=== PATIENT | male | born 1940 | race Hispanic/Latino ===

== ENCOUNTER → 2025-03-25 | Day surgery (SDC) | payer MEDICARE ==
[2025-03-24 13:32] LABS: ANION GAP 15.3 mmol/L (8-16); CALCIUM 9.5 mg/dL (8.4-10.2); CREATININE, SERUM 1.25 mg/dL (0.72-1.25)
[2025-03-24 13:33] LABS: POTASSIUM 5.3 mmol/L (3.5-5.1)
[2025-03-24 14:10] LABS: BASOPHILS % 0.5 % (0.0-1.0); EOSINOPHILS # (AUTO) 0.2 (0.0-0.4); EOSINOPHILS % 3.2 % (0.0-6.0); HEMATOCRIT 33.3 % (38.2-49.6); HEMOGLOBIN 10.8 g/dL (14.0-18.0); LYMPHOCYTES # (AUTO) 1.2 (1.0-3.2); LYMPHOCYTES % 15.8 % (18.0-39.1); MEAN CORPUSCULAR HEMOGLOBIN 28.8 pg (28-32); MEAN CORPUSCULAR HGB CONC 32.4 g/dL (31-35); MEAN CORPUSCULAR VOLUME 88.8 fL (81-99); MONOCYTES # (AUTO) 0.7 (0.2-0.8); MONOCYTES % 9.7 % (4.4-11.3); NEUTROPHILS # (AUTO) 5.3 (2.1-6.9); NEUTROPHILS % 70.4 % (38.7-80.0); PLATELET COUNT 203 x10e3/uL (140-360); RED BLOOD COUNT 3.75 x10e6/uL (4.3-5.7); RED CELL DISTRIBUTION WIDTH 15.1 % (11.7-14.4); WHITE BLOOD COUNT 7.49 x10e3/uL (4.8-10.8)
[~2025-03-25] MED LIST: ACETAMINOPHEN 1000 MG/100 ML 100 ML IV ONE; ACETAMINOPHEN/CODEINE 300MG - 30MG TAB ONE; ASPIRIN EC81 MG PO; BENZONATATE200 MG PO; CEFUROXIME250 MG PO; ELIQUIS2.5 MG PO; EPHEDRINE SULFATE INJ 50 MG/ML VIAL ONE; FARXIGA10 MG PO; FENTANYL CITRATE/PF 100MCG/2 ML INJ ONE; FINASTERIDE5 MG PO; GABAPENTIN100 MG PO; GENTAMICIN 80MG/NS 100 ML 200 ML IV ONE; GLIPIZIDE ER5 MG PO; HYDRALAZINE HCL 20 MG/ML VIAL ONE; JANUMET XR 1001 EACH PO; LIDOCAINE HCL 2% LOCAL INJ 5 ML SDV VIAL INJ ONE; LIPITOR10 MG PO; MIDODRINE HCL5 MG PO; ONDANSETRON HCL INJ 2MG/ML 2ML 2 MG/ML VIAL ONE; POLYETHYLENE GL17 GM PO; PROPOFOL IV EMULSION 10 MG/ML 20 ML VIAL ONE; SEVOFLURANE INHAL SOLN 250 ML PEN BTL ONE; SODIUM CHLORIDE 0.9% 1000ML 1,000 ML ONE; VENTOLIN HFA18 GM INH
[2025-03-25 13:38] VITALS: TEMP 97
[2025-03-25] MEDS: FENTANYL CITRATE/PF 100MCG/2 ML INJ ONE (14:01)
[2025-03-25 15:25] VITALS: BP 160/90; PULSE 60; RESP 12; O2SAT 98
== END | disposition home or self-care (01) ==
LOC: OR 09:23
PROVIDERS: ATTEND Urology
DX: N40.1 Benign prostatic hyperplasia with lower urinary tract symptoms (principal); N13.8 Other obstructive and reflux uropathy; N47.1 Phimosis; N39.0 Urinary tract infection, site not specified; N35.812 Other bulbous urethral stricture, male; N32.89 Other specified disorders of bladder; D64.9 Anemia, unspecified; E11.9 Type 2 diabetes mellitus without complications; I25.10 Atherosclerotic heart disease of native coronary artery without angina pectoris; I10 Essential (primary) hypertension; E78.5 Hyperlipidemia, unspecified; Z01.810 Encounter for preprocedural cardiovascular examination; Z01.812 Encounter for preprocedural laboratory examination; Z01.818 Encounter for other preprocedural examination; Z79.02 Long term (current) use of antithrombotics/antiplatelets; Z79.82 Long term (current) use of aspirin; Z79.84 Long term (current) use of oral hypoglycemic drugs; Z79.899 Other long term (current) drug therapy; Z95.0 Presence of cardiac pacemaker
CPT/HCPCS: 52005; 54161; C9740; 36415; 71046; 74420; 80048; 82948; 85025; 87086; 87186; 88304; 93005; J0360; J0690; J1580; J2003; J2405; J7030; L8699